=== PATIENT | male | born 1965 | race Caucasian/White ===

== ENCOUNTER 2022-10-15 06:30 | Day surgery (SDC) | payer SELFPAY ==
[2022-10-15 07:21] VITALS: BP 108/78; PULSE 59; RESP 16; TEMP 36.6; O2SAT 100; BMI 24.6
[2022-10-15] MEDS: Lactated Ringers 1,000 ML 15 ML IV (07:34)
--- NOTE | 2022-10-15 08:19 | PCM.HP.STD ---
[facility] - General General Date of Admission: 10/15/22 Date of Service: 10/15/22 Chief Complaint: Screening colonoscopy HPI Fran GIBBS, is a 57 M who presents today for screening colonoscopy. He has a strong family history of colon cancer in his mother and his father. He had a colonoscopy approximately 11 years ago and it was normal. He does not have any abdominal pain, cramping, nausea, vomiting or diarrhea. He denies any lower GI bleeding. Overall is in very good health. [facility] Medical History Non-smoker Home Medications NK 10/14/22 [History Last Taken Unknown] Allergy/AdvReac Type Severity Reaction Status Date / Time No Known Allergies Allergy Verified 10/15/22 07:21 Family History (Updated 07/30/22 @ 08:50 by Isabel Mendiola) Mother Colon cancer Father Colon cancer Surgical History Hx of appendectomy Social History (Updated 07/30/22 @ 08:51 by Isabel Mendiola) current occupational status: employed Smoking Status: Never smoker alcohol intake: never jeanne/zoroastrian: Rashad ROS Review of Systems ROS Unobtainable: other Constitutional Constitutional: Denies fatigue, fever(s), poor appetite, weight gain or weight loss ENT HEENT: Denies mouth lesions Cardiovascular Cardiovascular: Denies abdominal bloating, abdominal edema or abdominal pain Respiratory/Chest Respiratory/Chest: Denies change in mental status, change in phlegm color, chest congestion or chest tightness Gastrointestinal Gastrointestinal: Denies belching, bloating, change in bowel habits, change in stool character, chewing difficulty, coffee ground emesis, constipation, cramping, diarrhea, dyspepsia, dysphagia, early satiety, excessive flatus, fecal incontinence, heartburn, hematemesis, hematochezia, hemorrhoids, loose stools, melena, nausea, odynophagia, rectal bleeding, tenesmus, vomiting or weight changes Genitourinary Genitourinary: Denies abdominal discomfort, burning urination or itching Musculoskeletal Musculoskeletal: Reports as per HPI; Denies muscle weakness or myalgias Integumentary Integumentary: Denies jaundice Neurologic Neurologic: Denies lack of coordination or weakness Psychiatric Psychiatric: Denies confusion, depression, memory loss, mood swings, paranoia or suicidal ideation Endocrine Endocrinology: Denies systems reviewed and no addt'l complaints, except as documented Hematologic/Lymphatic Hematologic/Lymphatic: Denies anemia, easy bleeding, easy bruising or lymphadenopathy Allergic/Immunologic Allergic/Immunologic: Denies systems reviewed and no addt'l complaints, except as documented Vital Signs Vital Signs Vital Signs: 10/15/22 07:21 10/15/22 07:21 Temperature 97.9 F Temperature Source Temporal Pulse Rate 59 L Respiratory Rate 16 Respiratory Pattern Normal Blood Pressure 108/78 Blood Pressure Mean 88 Blood Pressure Source Monitor Blood Pressure Position Semi-Fowlers Blood Pressure Location Left Arm Pulse Ox 100 Oxygen Delivery Method Room Air Weight Weight: 148 lb 2.41 oz Body Mass Index (BMI) 24.6 Physical Exam Const alert General Appearance: cooperative Orientation / Consciousness: oriented to person HEENT hearing grossly normal bilaterally Head and Scalp: normal to inspection Face and Sinus: face symmetric Nose: external nose normal Mouth: oral and palatal mucosa normal Eyes conjunctivae normal General Eye: normal appearance of both eyes Neck full ROM General: normal visual inspection Lymph Lymphatic: no lymphadenopathy noted Chest inspection of chest normal and palpation of chest normal Chest: symmetrical chest wall rise Resp normal respiratory effort Effort and Inspection: able to speak in complete sentences Cardio regular rate GI non-distended Percussion: normal to percussion Rectal Exam: deferred Neuro Speech: speech normal Gait (Neuro): normal gait Assessment & Plan Assessment/Plan (1) Encounter for screening for malignant neoplasm of colon: PLAN: He was explained alternatives, risk, benefits include not withstanding bleeding, infection, sepsis, perforation, need for emergent surgery . He will then ASA of 2.
--- NOTE | 2022-10-15 08:45 | COLBX_PTH ---
PATIENT: ANGEL GIBBS LOC: [facility] U#:[id number] AGE/SX: 57/M ROOM: RE10/15/[address]: Dr. Andrea Watters DO : 1965 BED: DIS: 10/15/2022 SPEC #: [id number] RECD: 10/15/22 10:32 STATUS: AMY CALHOUN #: [id number] TAQUERIA: 10/15/22 08:[address]: Andrea Watters DEPT: SURGICAL PATHOLOGY RECD BY: Josias Hoskins ENTERED: 10/15/22 11:41 SP TYPE: COLON BX OTHR DR: Dr. Neville Girard DO Tissues: COLON BIOPSY Procedures: Surgery Specimen Level IV HEADER OPERATION: Colonoscopy ? open access (MAC) with biopsy PRE-OP DIAGNOSIS: Screening TISSUE SUBMITTED: Splenic flexure polyp biopsy MICROSCOPIC DIAGNOSIS Splenic flexure polyp, biopsy: Tubular adenoma. SJ:tamar 10/16/2022 MICROSCOPIC DESCRIPTION Slides are reviewed. GROSS DESCRIPTION Received in fixative is one container labeled with the patient's name and designated splenic flexure polyp biopsy. The specimen consists of one irregular fragment of [place] soft tissue that measures 0.3 x 0.3 x 0.1 cm. The specimen is totally submitted in one cassette. / SJ:rg 10/15/2022 TC:1 CPT: 15272
[2022-10-15 09:20] VITALS: BP 104/72; BP 108/78; PULSE 63; RESP 16; TEMP 36.2; O2SAT 99
--- NOTE | 2022-10-15 09:21 | OP.COLON_ITS ---
Patient Name: Son Melgoza Procedure Date: 10/15/2022 8:53 AM Date of : 1965 Age: 57 Procedure: Colonoscopy Indications: Screening for colorectal malignant neoplasm, Family history of colon cancer in multiple first-degree relatives Providers: Andrea Watters DO Medicines: Monitored Anesthesia Care Patient Profile: This is a 57 year old male. Refer to note in patient chart for documentation of history and physical. Last Colonoscopy: more than 10 years ago. Complications: No immediate complications. Procedure: Pre-Anesthesia Assessment: - Prior to the procedure, a History and Physical was performed, and patient medications and allergies were reviewed. The risks and benefits of the procedure and the sedation options and risks were discussed with the patient. All questions were answered and informed consent was obtained. Patient identification and proposed procedure were verified by the physician. Mental Status Examination: normal. Prophylactic Antibiotics: The patient does not require prophylactic antibiotics. Prior Anticoagulants: The patient has taken no previous anticoagulant or antiplatelet agents. After reviewing the risks and benefits, the patient was deemed in satisfactory condition to undergo the procedure. The anesthesia plan was to use monitored anesthesia care (MAC). Immediately prior to administration of medications, the patient was re-assessed for adequacy to receive sedatives. The heart rate, respiratory rate, oxygen saturations, blood pressure, adequacy of pulmonary ventilation, and response to care were monitored throughout the procedure. The physical status of the patient was re-assessed after the procedure. After I obtained informed consent, the scope was passed under direct vision. Throughout the procedure, the patient's blood pressure, pulse, and oxygen saturations were monitored continuously. The Colonoscope was introduced through the anus and advanced to the cecum, identified by appendiceal orifice and ileocecal valve. The colonoscopy was performed without difficulty. The patient tolerated the procedure well. The quality of the bowel preparation was adequate. Scope In: 8:59:28 AM Scope Withdrawal Time 0 hours 11 minutes 0 seconds Scope Out: 9:13:54 AM Total Procedure Duration Time 0 hours 14 minutes 26 seconds Findings: The perianal and digital rectal examinations were normal. A 5 mm polyp was found in the splenic flexure. The polyp was sessile. The polyp was removed with a cold snare. Resection and retrieval were complete. Verification of patient identification for the specimen was done. Estimated blood loss was minimal. The exam was otherwise without abnormality on direct and retroflexion views. Impression: - One 5 mm polyp at the splenic flexure, removed with a cold snare. Resected and retrieved. - The examination was otherwise normal on direct and retroflexion views. Recommendation: - Discharge patient to home. - Resume previous diet. - Continue present medications. - Await pathology results. - Repeat colonoscopy in 5 years for surveillance. Procedure Code(s): --- Professional --- 73594, Colonoscopy, flexible; with removal of tumor(s), polyp(s), or other lesion(s) by snare technique CPT copyright 2017 [employer]. All rights reserved. The codes documented in this report are preliminary and upon glue maker review may be revised to meet current compliance requirements. Andrea Watters DO 10/15/2022 9:21:37 AM This report has been signed electronically. Number of Addenda: 0 Note Initiated On: 10/15/2022 8:53 AM
--- NOTE | 2022-10-15 09:21 | OP.CCLET_ITS ---
10/15/2022 Neville Girard Re : Colonoscopy procedure for Son Castillor Shaji This procedure was performed on Saturday, October 15, 2022. My impressions and recommendations are as follows: Impressions : - One 5 mm polyp at the splenic flexure, removed with a cold snare. Resected and retrieved. - The examination was otherwise normal on direct and retroflexion views. Recommendations : - Discharge patient to home. - Resume previous diet. - Continue present medications. - Await pathology results. - Repeat colonoscopy in 5 years for surveillance. My findings are described in the full procedure note, which is enclosed. If I can be of further assistance, please feel free to contact me at . Sincerely, Andrea Watters, 10/15/2022 9:21:37 AM This report has been signed electronically.
[2022-10-15 09:25] VITALS: BP 100/65; BP 108/78; PULSE 71; RESP 14; O2SAT 100
[2022-10-15 09:30] VITALS: BP 101/66; BP 108/78; PULSE 60; RESP 14; O2SAT 100
[2022-10-15 09:36] VITALS: BP 108/78; BP 109/66; PULSE 58; RESP 14; TEMP 36.5; O2SAT 100
[2022-10-15 09:52] VITALS: BP 108/78
== END 2022-10-15 10:00 | disposition home or self-care (01) ==
LOC: EN 06:34 → AC 06:34
PROVIDERS: Referring Provider Family Medicine; Visit Provider Internal Medicine Gastroenterology
PROC: 0DJD8ZZ Inspection of Lower Intestinal Tract, Via Natural or Artificial Opening Endoscopic (ICD-10-PCS; CPT 45378; principal; 2022-10-15 08:40)
DX: Z12.11 Encounter for screening for malignant neoplasm of colon (principal); Z80.0 Family history of malignant neoplasm of digestive organs; D12.3 Benign neoplasm of transverse colon
CPT/HCPCS: 45385; 88305; J7120; J2405